=== PATIENT | female | born 1980 | race Caucasian/White ===

== ENCOUNTER 2019-01-30 20:42 | Emergency (ER) | payer SELFPAY ==
[~2019-01-30] VITALS: Ht 162.6 cm; Wt 77.1 kg
--- NOTE | 2019-01-30 20:44 | PHYS DOC ---
Past History Past Medical History: Sciatica Adult General Chief Complaint Chief Complaint: ".. I go bad back pain... it running down my Lt. leg....".."I did fall going down some stairs the other day...and I lift pt.s all day... 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 She has had previous episodes of back pain and sciatica. Patient did fall on stairs approximately 2 weeks ago which she suspects exacerbated her back pain. No history of travel. No history of specific ill contacts. No history immunosuppression. No history of cancer. No history of fever or chills. No history of IV drug use. Pain runs into left hip and radiates down behind left le g. She has associated numbness along the sciatic distribution. Review of Systems Review of Systems Constitutional: Denies fever or chills [] Eyes: Denies change in visual acuity, redness, or eye pain [] HENT: Denies nasal congestion or sore throat [] Respiratory: Denies cough or shortness of breath [] Cardiovascular: No additional information not addressed in [employer] [] GI: Denies abdominal pain, nausea, vomiting, bloody stools or diarrhea [] : Denies dysuria or hematuria [] Musculoskeletal: Complaints of exacerbation of left leg sciatica back pain. Integument: Denies rash or skin lesions [] Neurologic: Denies headache, focal weakness or sensory changes [] Endocrine: Denies polyuria or polydipsia [] All other systems were reviewed and found to be within normal limits, except as documented in this note. Family History Family History Noncontributory Current Medications Current Medications See nursing for home meds Allergies Allergies Allergic to Dilantin Physical Exam Physical Exam Constitutional: Moderate acute distress, non-toxic appearance. [] HENT: Normocephalic, atraumatic, bilateral external ears normal, oropharynx moist, no oral exudates, nose normal. [] Eyes: PERRLA, EOMI, conjunctiva normal, no discharge. [] Neck: Normal range of motion, no tenderness, supple, no stridor. [] Cardiovascular:Heart rate regular rhythm, no murmur [] Lungs & Thorax: Bilateral breath sounds equal apexes scattered wheezes on auscultation [] Abdomen: Bowel sounds normal, soft, no tenderness, no masses, no pulsatile masses. [] Skin: Warm, dry, no erythema, no rash. [] Back: Left lumbar sacral and sciatic route tenderness, no CVA tenderness. [] Extremities: Left sciatic tenderness, no cyanosis, no clubbing, ROM intact, no edema. Straight leg lift exacerbates her left leg sciatica. No cording appreciated Neurologic: Alert and oriented X 3, normal motor function, normal sensory function, no focal deficits noted. [] Psychologic: Affect anxious, judgement normal, mood normal. [] EKG EKG [] Radiology/Procedures Radiology/Procedures [] IMAGING REPORT Signed PATIENT: URBAN VARGAS ACCOUNT: [id number] : 1980 LOCATION: ER AGE: 38 SEX: F EXAM STATUS: REG ER ORD. PHYSICIAN: TENZIN EPPERSON MD REASON: Fall down stairs, left side lower back pain radiating to leg PROCEDURE: CT LUMBAR SPINE WO CONTRAST CT LUMBAR SPINE WO CONTRAST History: Fall downstairs. Left sided lower back pain radiating to leg. Technique: Noncontrast CT was performed of the lumbar spine. Multiplanar reconstructions were performed. Exposure: One or more of the following individualized dose reduction techniques were utilized for this examination: 1. Automated exposure control 2. Adjustment of the mA and/or kV according to patient size 3. Use of iterative reconstruction technique. Comparison: None Findings: Normal vertebral body height and alignment. No fracture. T12-L1: No canal or neuroforaminal narrowing. L1-L2: No canal or neuroforaminal narrowing. L2-L3: No canal or neuroforaminal narrowing. L3-L4: Minimal posterior disc bulge. No canal or neuroforaminal narrowing. L4-L5: Minimal posterior disc bulge. No canal or neuroforaminal narrowing. Mild facet arthropathy. L5-S1: Minimal posterior disc bulge. No canal or neuroforaminal narrowing. Mild facet arthropathy. Impression: 1. Mild multilevel lumbar spondylosis. No significant canal or neuroforaminal narrowing. Electronically signed by: Julius Bautista DO (01/30/2019 9:37 PM) [facility] DICTATED AND SIGNED BY: JULIUS BAUTISTA DO DATE: 01/30/192136 CC: TENZIN EPPERSON MD; LEDA PEREIRA ~ Course & Med Decision Making Course & Med Decision Making Pertinent Labs and Imaging studies reviewed. (See chart for details) Patient use ice packs as needed. Patient take Tylenol and ibuprofen for HEENT. For marked discomfort may take Vicoprofen up 4 times a day. Patient take Flexeril 10 mg 3 times a day for muscle spasms. Patient follow-up primary care. Patient return if any concerns. Encouraged to stop smoking. Impression: 1. Sciatica 2. Multilevel DJD 3. Tobacco Use [] Dragon Disclaimer Dragon Disclaimer This electronic medical record was generated, in whole or in part, using a voice recognition dictation system. Departure Departure: Disposition: 01 HOME/RESIDENCE PRIOR TO ADM Condition: STABLE Referrals: LEDA PEREIRA (PCP) Scripts Hydrocodone/Ibuprofen (HYDROCODONE-IBUPROFEN 7.5-200 ) 1 Each Tablet 1 TAB PO PRN Q6HRS PRN for PAIN, #30 TAB 0 Refills Prov: TENZIN EPPERSON MD 01/30/19 Cyclobenzaprine Hcl (CYCLOBENZAPRINE HCL) 10 Mg Tablet 10 MG PO TID PRN PRN for MUSCLE SPASMS, #30 TAB Prov: TENZIN EPPERSON MD 01/30/19 Dragon Disclaimer This chart was dictated in whole or in part using Voice Recognition software in a busy, high-work load, and often noisy Emergency Department environment. It may contain unintended and wholly unrecognized errors or omissions. TENZIN EPPERSON MD Jan 30, 2019 20:44
--- NOTE | 2019-01-30 21:40 | RAD ---
CT LUMBAR SPINE WO CONTRAST History: Fall downstairs. Left sided lower back pain radiating to leg. Technique: Noncontrast CT was performed of the lumbar spine. Multiplanar reconstructions were performed. Exposure: One or more of the following individualized dose reduction techniques were utilized for this examination: 1. Automated exposure control 2. Adjustment of the mA and/or kV according to patient size 3. Use of iterative reconstruction technique. Comparison: None Findings: Normal vertebral body height and alignment. No fracture. T12-L1: No canal or neuroforaminal narrowing. L1-L2: No canal or neuroforaminal narrowing. L2-L3: No canal or neuroforaminal narrowing. L3-L4: Minimal posterior disc bulge. No canal or neuroforaminal narrowing. L4-L5: Minimal posterior disc bulge. No canal or neuroforaminal narrowing. Mild facet arthropathy. L5-S1: Minimal posterior disc bulge. No canal or neuroforaminal narrowing. Mild facet arthropathy. Impression: 1. Mild multilevel lumbar spondylosis. No significant canal or neuroforaminal narrowing. Electronically signed by: Julius Bautista DO (01/30/2019 9:37 PM) [facility]
[2019-01-30] MEDS ORDERED: CYCL-331 PO (22:50)
[2019-01-30] MEDS ORDERED: HYDR-1179 PO (22:50)
[2019-01-30 22:51] LABS: AMPHETAMINE/METHAMPHETAMINE NEG (NEG); BARBITURATES NEG (NEG); BENZODIAZEPINES NEG (NEG); CANNABINOIDS POS (NEG); COCAINE NEG (NEG); METHADONE NEG (NEG); OPIATES POS (NEG); PHENCYCLIDINE NEG (NEG)
[2019-01-30] MEDS ORDERED: ORPHENADRINE CITRATE 60 MG/2 ML VIAL. IM ONE (23:00)
[2019-01-30] MEDS ORDERED: MORPHINE SULFATE 10 MG/ML SYRINGE. SQ ONE (23:00)
[2019-01-30] MEDS ORDERED: KETOROLAC 60 MG/2 ML VIAL. IM ONE (23:00)
[2019-01-30] MEDS ORDERED: methylPREDNISolone ACETATE 40 MG/ML VIAL. IM ONE (23:00)
[2019-01-30 23:04] LABS: BILIRUBIN,URINE NEG (NEG); CLARITY,URINE CLOUDY; COLOR,URINE YELLOW; GLUCOSE,URINE NEG (NEG); NITRITE,URINE NEG (NEG); UROBILINOGEN,URINE 0.2 mg/dL (0.2 mg/dL)
[2019-01-30 23:05] LABS: BACTERIA,URINE FEW /HPF (0-FEW); SQUAMOUS EPITHELIAL CELL,UR MOD /LPF
[2019-01-30 23:18] VITALS: BP 115/72
== END 2019-01-30 23:25 | disposition home or self-care (01) ==
LOC: ER 20:42
DX: M54.42 Lumbago with sciatica, left side (principal); M15.8 Other polyosteoarthritis; M47.896 Other spondylosis, lumbar region; Z72.0 Tobacco use
CPT/HCPCS: 36415; 72131; 80307; 81001; 81025; 96372; 99285; J1030; J1885; J2270; J2360

== ENCOUNTER 2019-07-28 20:00 | Emergency (ER) | payer SELFPAY ==
[~2019-07-28] VITALS: Ht 162.6 cm; Wt 70.3 kg
[~2019-07-28 20:00] MED LIST: CYCL-331 PO; HYDR-1179 PO
--- NOTE | 2019-07-28 20:21 | RAD ---
Exam: CT head INDICATION: Stroke TECHNIQUE: Sequential axial images through the head were obtained without the administration of IV contrast. Comparisons: None FINDINGS: No focal parenchymal lesion or hemorrhage is identified. There is no midline shift or sulcal effacement. No acute vascular territory infarction is identified. Shipley-white distinction is preserved. The ventricular system is within normal limits without compression hydrocephalus. The basal cisterns are well maintained. The visualized portions of the paranasal sinuses and mastoid air cells are well-pneumatized. No acute fractures. IMPRESSION: No acute intracranial abnormality. Exposure: One or more of the following in the visualized dose reduction techniques were utilized for this examination: 1. Automated exposure control 2. Adjustment of the MA and/or KV according to patient size Use of iterative of reconstructive technique FOR INTERNAL CODING PURPOSES Critical result: Findings discussed with ROB PRASAD at 07/28/2019 8:16 PM. RESULT CODE: (C) Electronically signed by: Bonifacio Linda MD (07/28/2019 8:18 PM) [id number]
[2019-07-28] MEDS ORDERED: IV NORMAL SALINE 1,000ML 1,000 ML IV ONE (20:30)
[2019-07-28 20:39] LABS: BASO # 0.1 x10^3/uL (0.0-0.2); BASO % 1 % (0-3); EOS % 0 % (0-3); LYMPH # 2.9 x10^3/uL (1.0-4.8); LYMPH % 32 % (24-48); MEAN CORPUSCULAR HEMOGLOBIN 30 pg (25-35); MEAN CORPUSCULAR HGB CONC 34 g/dL (31-37); MEAN CORPUSCULAR VOLUME 89 fL (79-100); MONO # 0.6 x10^3/uL (0.0-1.1); MONO % 7 % (0-9); NEUT # 5.4 x10^3uL (1.8-7.7); NEUT % 60 % (31-73); PLATELET COUNT 323 x10^3/uL (140-400); RED CELL DISTRIBUTION WIDTH 13.2 % (11.5-14.5); WHITE BLOOD COUNT 9.1 x10^3/uL (4.0-11.0)
[2019-07-28 20:46] LABS: CALCIUM 9.7 mg/dL (8.5-10.1); CREATININE 1.1 mg/dL (0.6-1.0); GFR 55.6; POTASSIUM 3.3 mmol/L (3.5-5.1)
[2019-07-28 20:52] LABS: ALBUMIN 4.1 g/dL (3.4-5.0); ALBUMIN/GLOBULIN RATIO 1.1 (1.0-1.7); TOTAL BILIRUBIN 0.3 mg/dL (0.2-1.0); TOTAL PROTEIN 7.9 g/dL (6.4-8.2)
[2019-07-28] MEDS ORDERED: IOHEXOL 350 MG/ML 100 ML VIAL. IV ONE (21:15)
[2019-07-28] MEDS ORDERED: ONDANSETRON PF 4 MG/2 ML VIAL. IVP ONE (21:30)
[2019-07-28] MEDS ORDERED: MORPHINE SULFATE 4 MG/ML DISP.SYRIN. IV ONE (21:30)
--- NOTE | 2019-07-28 22:20 | RAD ---
CTA head and CTA neck with contrast History: TIA Technique: Axial helical images were obtained of the head and neck after the intravenous administration of 75 mL of Isovue-370 IV contrast. Multiplanar reconstruction was performed on an independent work station including MIP imaging and 3D angiographic imaging. Comparison: none CTA head with and without contrast. Findings: Brain: The peña and white matter appears symmetrical. There is no mass effect, extra-axial fluid collections or hydrocephalus. There is no gross bleed. Distal carotid arteries: normal caliber Vertebral basilar system normal Major cerebral arteries: normal Impression: no acute findings end impression CTA neck with contrast: Findings: Aortic arch and origin of great vessels: normal Common carotid arteries: Right: normal Left: normal Internal carotid arteries: Right: normal Left: normal Vertebral basilar system normal Impression: No significant stenosis. PQRS Compliance Statement - Stenosis calculations for CT, MR and conventional angiography are based upon measurement of the distal ICA diameter in accordance with the NASCET methodology. Stenosis calculations for carotid ultrasound studies are derived from validated velocity criteria which are known to correlate with the NASCET methodology. PQRS Compliance Statement: One or more of the following individualized dose reduction techniques were utilized for this examination: 1. Automated exposure control 2. Adjustment of the mA and/or kV according to patient size 3. Use of iterative reconstruction technique Electronically signed by: Itz Gotti III, MD (07/28/2019 10:17 PM) [id number]
--- NOTE | 2019-07-28 22:22 | RAD ---
Exam: Right shoulder 3 views. Right hip with pelvis. Right femur INDICATION: Fall with right hip and pelvic pain TECHNIQUE: Frontal view of the right shoulder with internal and external rotation and transscapular Y view. Frontal and frog-leg lateral views of the right hip with frontal view of the pelvis. Frontal and lateral views of the right femur. Comparisons: None FINDINGS: Shoulder: Bone mineralization is normal. No acute or healed fractures. Soft tissues are unremarkable. Joint spaces are well-maintained. Pelvis: Bone mineralization is normal. No acute or healed fractures. Soft tissues are unremarkable. Joint spaces are well-maintained. Femur: Bone mineralization is normal. No acute or healed fractures. Soft tissues are unremarkable. Joint spaces are well-maintained. IMPRESSION: 1. No acute osseous abnormality of the right shoulder. 2. No acute osseous abnormality of the right femur. 3. No acute osseous abnormality of the right hip. Electronically signed by: Bonifacio Linda MD (07/28/2019 10:19 PM) [id number]
--- NOTE | 2019-07-28 22:38 | EKG ---
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
--- NOTE | 2019-07-28 22:48 | PHYS DOC ---
Past History Past Medical History: Anxiety, Bipolar, Depression, Seizure, Sciatica Additional Past Medical Histor: psoriasis,chronic back pain, cervical cancer,grand mal Past Surgical History: Tonsillectomy, Other Additional Past Surgical Histo: laser to cervix to remove cancer cells-1997 Alcohol Use: None Drug Use: None General Adult EDM: Chief Complaint: ALTERED MENTAL STATUS HPI: HPI: Patient is a 39-year-old female brought by EMS with a chief complaint of slurred speech and falling. EMS state that the patient's last known well was 99 hours. They state that patient was out with her neighbors and family when she suddenly had an episode of slurred speech and stumbling around. EMS denies that patient used alcohol or any drugs. When presenting to the ED patient complains of pain to her right upper and lower extremity and states that she cannot move it due to pain. Patient also complains of chest pain that is been present for more than 1 week. Patient is speaking without any difficulty on presentation to the ER. EMS also state that patient has tested positive for COVID more than 1 week ago. Patient does admit to being an active smoker. Patient denies fever, chills, nausea or vomiting. Patient does complain of pain to her right shoulder and right hip and right thigh. Patient states that this is where she fell because she was not able to walk properly. Review of Systems: Review of Systems: Constitutional: Denies fever or chills Eyes: Denies change in visual acuity HENT: Denies nasal congestion or sore throat Respiratory: Denies cough or shortness of breath Cardiovascular: Denies chest pain or edema GI: Denies abdominal pain, nausea, vomiting, bloody stools or diarrhea : Denies dysuria Musculoskeletal: Complains of pain to the right shoulder, right hip and right thigh Integument: Denies rash Neurologic: Complains of pain and decreased movement to the right upper and lower extremities. Heart Score: Risk Factors: Risk Factors: DM, Current or recent (<one month) smoker, HTN, HLP, family history of CAD, obesity. Risk Scores: Score 0 - 3: 2.5% MACE over next 6 weeks - Discharge Home Score 4 - 6: 20.3% MACE over next 6 weeks - Admit for Clinical Observation Score 7 - 10: 72.7% MACE over next 6 weeks - Early Invasive Strategies Current Medications: Current Meds: Current Medications Medications (Trade) Dose Ordered Sig/Romel Start Time Stop Time Status Last Admin Dose Admin Iohexol (Omnipaque 350 Mg/ml) 100 ml 1X ONCE 07/28/19 21:15 07/28/19 21:16 DC 07/28/19 22:21 100 ML Morphine Sulfate (Morphine 4mg Syringe) 4 mg 1X ONCE 07/28/19 21:30 07/28/19 21:31 DC 07/28/19 21:28 4 MG Ondansetron HCl (Zofran) 4 mg 1X ONCE 07/28/19 21:30 07/28/19 21:31 DC 07/28/19 21:27 4 MG Sodium Chloride 1,000 ml @ 1,000 mls/hr 1X ONCE 07/28/19 20:30 07/28/19 21:29 DC 07/28/19 20:36 1,000 MLS/HR Allergies: Allergies: Allergies Coded Allergies Type Severity Reaction Last Updated Verified phenytoin Allergy Intermediate 01/30/19 Yes Physical Exam: PE: Constitutional: Well developed, well nourished, no acute distress, non-toxic appearance. [] HENT: Normocephalic, atraumatic Eyes: EOMI Neck: Normal range of motion, Supple Cardiovascular:Heart rate regular rhythm Lungs & Thorax: Bilateral breath sounds clear to auscultation [] Abdomen: Bowel sounds normal, soft, no tenderness Extremities: Tenderness to the right shoulder, right hip, right thigh Neurologic: Alert and oriented X 3. Patient complains of decreased movement to the right upper and right lower extremities and states that this is due to pain. Current Patient Data: Labs: Laboratory Tests Test 07/28/19 20:19 White Blood Count 9.1 x10^3/uL (4.0-11.0) Red Blood Count 4.60 x10^6/uL (3.50-5.40) Hemoglobin 14.0 g/dL (12.0-15.5) Hematocrit 41.0 % (36.0-47.0) Mean Corpuscular Volume 89 fL (79-100) Mean Corpuscular Hemoglobin 30 pg (25-35) Mean Corpuscular Hemoglobin Concent 34 g/dL (31-37) Red Cell Distribution Width 13.2 % (11.5-14.5) Platelet Count 323 x10^3/uL (140-400) Neutrophils (%) (Auto) 60 % (31-73) Lymphocytes (%) (Auto) 32 % (24-48) Monocytes (%) (Auto) 7 % (0-9) Eosinophils (%) (Auto) 0 % (0-3) Basophils (%) (Auto) 1 % (0-3) Neutrophils # (Auto) 5.4 x10^3uL (1.8-7.7) Lymphocytes # (Auto) 2.9 x10^3/uL (1.0-4.8) Monocytes # (Auto) 0.6 x10^3/uL (0.0-1.1) Eosinophils # (Auto) 0.0 x10^3/uL (0.0-0.7) Basophils # (Auto) 0.1 x10^3/uL (0.0-0.2) Prothrombin Time 10.4 SEC (9.4-11.4) Prothrombin Time INR 1.0 (0.9-1.1) Sodium Level 142 mmol/L (136-145) Potassium Level 3.3 mmol/L (3.5-5.1) L Chloride Level 104 mmol/L (98-107) Carbon Dioxide Level 24 mmol/L (21-32) Anion Gap 14 (6-14) Blood Urea Nitrogen 16 mg/dL (7-20) Creatinine 1.1 mg/dL (0.6-1.0) H Estimated GFR (Cockcroft-Gault) 55.6 BUN/Creatinine Ratio 15 (6-20) Glucose Level 124 mg/dL (70-99) H Calcium Level 9.7 mg/dL (8.5-10.1) Total Bilirubin 0.3 mg/dL (0.2-1.0) Aspartate Amino Transferase (AST) 17 U/L (15-37) Alanine Aminotransferase (ALT) 23 U/L (14-59) Alkaline Phosphatase 72 U/L (46-116) Troponin I Quantitative < 0.017 ng/mL (0-0.055) Total Protein 7.9 g/dL (6.4-8.2) Albumin 4.1 g/dL (3.4-5.0) Albumin/Globulin Ratio 1.1 (1.0-1.7) Vital Signs: Vital Signs Date Time Temp Pulse Resp B/P (MAP) Pulse Ox O2 Delivery O2 Flow Rate FiO2 07/28/19 22:15 102 20 111/78 (89) 100 Room Air 07/28/19 20:16 98.7 EKG: EKG: EKG interpretation: 20: 29 on 07/28/2019 HR: 105 Sinus tachycardia Regular intervals Normal axis Non specific ST changes Radiology/Procedures: Radiology/Procedures: [] Impressions: CT head shows no acute disease. CT of the head and neck shows no acute stenosis. X-ray of the right shoulder shows no acute fractures X-ray of the right hip shows no acute fractures X-ray of the pelvis shows no acute fractures X-ray of the right femur shows no acute fractures Course & Med Decision Making: Course & Med Decision Making Pertinent Labs and Imaging studies reviewed. (See chart for details) Ordered labs, CT of the head, IV, UA, EKG, troponin CT head does not show any acute disease. Initially patient was not able to move right upper extremity right lower extremity. Patient then gave more of a history that she fell and that is the pain caused on her right hip and right shoulder. Once the right hip was supported patient was able to flex and extend her right knee. She was also able to flex and extend her right elbow. Patient has no slurred speech while in the ER. EKG does not show any acute changes. Labs are within normal limits. Troponin is negative. I discussed case with Dr. Sanchez from neurology who recommends that if patient still has acute deficits that patient can be given TPA. On reexamination of the patient, patient currently has no acute focal neurologic deficits. TPA is not given to the patient. CTA of the head and neck shows no acute stenosis. Due to patient's initial presenting symptoms, I will transfer patient to [facility] for further evaluation and treatment. I discussed results and plan of care with patient. I discussed case with Dr. Carvajal who is the hospitalist on-call who accepts transfer. Surya Disclaimer: Surya Disclaimer: This electronic medical record was generated, in whole or in part, using a voice recognition dictation system. Departure Departure: Impression: Primary Impression: TIA (transient ischemic attack) Disposition: 05 TRANSFER OTHER Condition: IMPROVED Referrals: LEDA PEREIRA (PCP) ROB PRASAD DO Jul 28, 2019 22:48
[2019-07-28 23:57] LABS: BACTERIA,URINE FEW /HPF (0-FEW); BILIRUBIN,URINE NEG (NEG); CLARITY,URINE CLEAR; COLOR,URINE YELLOW; GLUCOSE,URINE NEG (NEG); NITRITE,URINE NEG (NEG); RBC,URINE 0 /HPF (0-2); SQUAMOUS EPITHELIAL CELL,UR FEW /LPF; UROBILINOGEN,URINE 0.2 mg/dL (0.2 mg/dL); WBC,URINE OCC /HPF (0-4)
[2019-07-29 00:35] VITALS: BP 108/70
== END 2019-07-29 01:23 | disposition short-term general hospital (02) ==
LOC: ER 20:00
DX: G45.9 Transient cerebral ischemic attack, unspecified (principal); M25.511 Pain in right shoulder; M25.551 Pain in right hip; M79.651 Pain in right thigh; G89.29 Other chronic pain; F17.200 Nicotine dependence, unspecified, uncomplicated; W18.39XA Other fall on same level, initial encounter; Y93.89 Activity, other specified; Y92.89 Other specified places as the place of occurrence of the external cause; Y99.8 Other external cause status
CPT/HCPCS: 36415; 70450; 70496; 70498; 73030; 73502; 73552; 80053; 81001; 84484; 85025; 85610; 93005; 96374; 96375; 99285; J2270; J2405; Q9967; J7030

== ENCOUNTER 2019-12-21 00:04 | Emergency (ER) | payer SELFPAY ==
[~2019-12-21] VITALS: Ht 315 cm; Wt 67.0 kg
[2019-12-21] MEDS ORDERED: IV NORMAL SALINE 1,000ML 1,000 ML IV ONE (00:30)
--- NOTE | 2019-12-21 00:39 | PHYS DOC ---
Past History Past Medical History: Anxiety, Bipolar, Depression, Seizure, Sciatica Additional Past Medical Histor: psoriasis,chronic back pain, cervical cancer,grand mal Past Surgical History: Tonsillectomy, Other Additional Past Surgical Histo: laser to cervix to remove cancer cells-1997 Alcohol Use: None Drug Use: None General Adult EDM: Chief Complaint: Vaginal bleeding HPI: HPI: 39-year-old female presents with vaginal bleeding and concern for . Her last menstrual cycle was November 28 and . Today she started having vaginal bleeding and some cramping. She was concerned about this so she took a test. It was positive. She has had work-related. Continued bleeding so she decided to come in for evaluation. The pain is not severe, more of a mild to moderate cramping that is annoying. She denies fever or chills. She denies dysuria or increased urinary frequency. She has not attempting to get . The patient's menstrual cycles are not always consistent. Sometimes she just bleeds for couple days and sometimes at 7. Her cycle is generally 4 weeks but not always. She has no other complaints at this time. Review of Systems: Review of Systems: Constitutional: Denies fever or chills Eyes: Denies change in visual acuity HENT: Denies nasal congestion or sore throat Respiratory: Denies cough or shortness of breath Cardiovascular: Denies chest pain or edema GI: Denies abdominal pain, nausea, vomiting, bloody stools or diarrhea : Vaginal bleeding Musculoskeletal: Denies back pain or joint pain Integument: Denies rash Neurologic: Denies headache, focal weakness or sensory changes Endocrine: Denies polyuria or polydipsia Lymphatic: Denies swollen glands Psychiatric: Denies depression or anxiety Current Medications: Current Meds: Current Medications Medications (Trade) Dose Ordered Sig/Romel Start Time Stop Time Status Last Admin Dose Admin Sodium Chloride 1,000 ml @ 1,000 mls/hr 1X ONCE 12/21/19 00:30 12/21/19 01:29 Allergies: Allergies: Allergies Coded Allergies Type Severity Reaction Last Updated Verified phenytoin Allergy Intermediate 01/30/19 Yes Physical Exam: PE: Constitutional: Well developed, well nourished, no acute distress, non-toxic appearance. [] HENT: Normocephalic, atraumatic, bilateral external ears normal, oropharynx moist, no oral exudates, nose normal. [] Eyes: PERRLA, EOMI, conjunctiva normal, no discharge. [] Neck: Normal range of motion, no tenderness, supple, no stridor. [] Cardiovascular: Heart rate regular rhythm, no murmur [] Lungs & Thorax: Bilateral breath sounds clear to auscultation [] Abdomen: Bowel sounds normal, soft, no tenderness, no masses, no pulsatile masses. [] Skin: Warm, dry, no erythema, no rash. [] Back: No tenderness, no CVA tenderness. [] Extremities: No tenderness, no cyanosis, no clubbing, ROM intact, no edema. [] Neurologic: Alert and oriented X 3, normal motor function, normal sensory function, no focal deficits noted. [] Psychologic: Affect normal, judgement normal, mood normal. [] EKG: EKG: [] Radiology/Procedures: Radiology/Procedures: [] Impressions: INDICATION: Reason: bleeding, +preg, rule out ectopic / Spl. Instructions: / History: COMPARISON: None. TECHNIQUE: Grayscale and color ultrasound images uterus and adnexa. Transabdominal and transvaginal images obtained. Transvaginal images were needed to better visualize structures that were limited on transabdominal imaging. FINDINGS: Uterus: 79 x 48 x 48 mm. No intrauterine gestational sac is identified. There is an ill-defined appearance of the myometrium and endometrium with echogenic coarsened appearance. Right Ovary: 29 x 19 x 17 mm. Left Ovary: 34 x 26 x 19 mm. Vascular flow identified to bilateral ovaries. At the left adnexa abutting or arising from the left ovary there is a masslike structure identified with a central cystic component. This structure measures up to about 2 cm in diameter with the central fluid component measuring approximately 8 mm. Small free fluid. IMPRESSION: * Within the left adnexa there is a cystic structure identified with a surrounding solid component. Given the patient's positive hCG one possible cause would include an ectopic but given that there is not a pole within this cystic structure alternative causes of adnexal mass remain within the differential as well. * No intrauterine gestational sac is identified. * Ill-defined appearance of the endometrial stripe with echogenic coarsened appearance of the adjacent myometrium. This is nonspecific in nature but causes such as adenomyosis not excluded. Electronically signed by: Fiona Patrick MD (12/21/2019 2:47 AM) [id number] DICTATED AND SIGNED BY: FIONA PATRICK MD DATE: 12/21/19 024 CC: JEREMY JOHNSON DO; PCP,NO ~ Heart Score: Risk Factors: Risk Factors: DM, Current or recent (<one month) smoker, HTN, HLP, family history of CAD, obesity. Risk Scores: Score 0 - 3: 2.5% MACE over next 6 weeks - Discharge Home Score 4 - 6: 20.3% MACE over next 6 weeks - Admit for Clinical Observation Score 7 - 10: 72.7% MACE over next 6 weeks - Early Invasive Strategies Course & Med Decision Making: Course & Med Decision Making Pertinent Labs and Imaging studies reviewed. (See chart for details) The patient's labs are unremarkable. Her urinalysis is positive for . Her quantitative hCG is 293. I have ordered an ultrasound to rule out ectopic . The patient's ultrasound suggest possible ectopic . It cannot rule that out. See official read for details. We have paged OB. I spoke with Dr. Segovia and he believes that the patient can follow-up outpatient to follow her hCGs. I have explained this to the patient. I have also told her that if her condition worsens in any way or for bleeding increases significantly that she should call OB and/or come back to the emergency room for further evaluation and management. She is stable for discharge at this time. [] Dragon Disclaimer: Dragon Disclaimer: This electronic medical record was generated, in whole or in part, using a voice recognition dictation system. Departure Departure: Impression: Primary Impression: Vaginal bleeding during Disposition: 01 DC HOME SELF CARE/HOMELESS Condition: STABLE Referrals: PCP,NO (PCP) Patient Instructions: Vaginal Bleeding During , First Trimester JEREMY JOHNSON DO Dec 21, 2019 00:39
[2019-12-21 00:51] LABS: BASO # 0.1 x10^3/uL (0.0-0.2); BASO % 1 % (0-3); EOS # 0.1 x10^3/uL (0.0-0.7); EOS % 2 % (0-3); HEMATOCRIT 37.6 % (36.0-47.0); HEMOGLOBIN 12.4 g/dL (12.0-15.5); LYMPH # 3.5 x10^3/uL (1.0-4.8); LYMPH % 43 % (24-48); MEAN CORPUSCULAR HEMOGLOBIN 30 pg (25-35); MEAN CORPUSCULAR HGB CONC 33 g/dL (31-37); MEAN CORPUSCULAR VOLUME 92 fL (79-100); MONO # 0.6 x10^3/uL (0.0-1.1); MONO % 7 % (0-9); NEUT # 3.9 x10^3uL (1.8-7.7); NEUT % 48 % (31-73); PLATELET COUNT 291 x10^3/uL (140-400); RED BLOOD COUNT 4.07 x10^6/uL (3.50-5.40); RED CELL DISTRIBUTION WIDTH 13.4 % (11.5-14.5); WHITE BLOOD COUNT 8.2 x10^3/uL (4.0-11.0)
[2019-12-21 00:57] LABS: ANION GAP 8 (6-14); BLOOD UREA NITROGEN 15 mg/dL (7-20); BUN/CREATININE RATIO 15 (6-20); CALCIUM 8.9 mg/dL (8.5-10.1); CARBON DIOXIDE 28 mmol/L (21-32); CHLORIDE 103 mmol/L (98-107); GFR 62.1; GLUCOSE 95 mg/dL (70-99); POTASSIUM 3.8 mmol/L (3.5-5.1); SODIUM 139 mmol/L (136-145)
[2019-12-21 01:00] LABS: BACTERIA,URINE FEW /HPF (0-FEW); BILIRUBIN,URINE NEG (NEG); CLARITY,URINE HAZY; COLOR,URINE YELLOW; GLUCOSE,URINE NEG (NEG); NITRITE,URINE NEG (NEG); RBC,URINE >40 /HPF (0-2); SQUAMOUS EPITHELIAL CELL,UR FEW /LPF; UROBILINOGEN,URINE 0.2 mg/dL (0.2 mg/dL)
[2019-12-21 01:03] LABS: ALBUMIN 3.7 g/dL (3.4-5.0); ALBUMIN/GLOBULIN RATIO 1.1 (1.0-1.7); ALK PHOS 61 U/L (46-116); ALT (SGPT) 18 U/L (14-59); AST (SGOT) 12 U/L (15-37)
[2019-12-21 01:09] LABS: TOTAL BILIRUBIN < 0.1 mg/dL (0.2-1.0)
--- NOTE | 2019-12-21 02:50 | RAD ---
INDICATION: Reason: bleeding, +preg, rule out ectopic / Spl. Instructions: / History: COMPARISON: None. TECHNIQUE: Grayscale and color ultrasound images uterus and adnexa. Transabdominal and transvaginal images obtained. Transvaginal images were needed to better visualize structures that were limited on transabdominal imaging. FINDINGS: Uterus: 79 x 48 x 48 mm. No intrauterine gestational sac is identified. There is an ill-defined appearance of the myometrium and endometrium with echogenic coarsened appearance. Right Ovary: 29 x 19 x 17 mm. Left Ovary: 34 x 26 x 19 mm. Vascular flow identified to bilateral ovaries. At the left adnexa abutting or arising from the left ovary there is a masslike structure identified with a central cystic component. This structure measures up to about 2 cm in diameter with the central fluid component measuring approximately 8 mm. Small free fluid. IMPRESSION: * Within the left adnexa there is a cystic structure identified with a surrounding solid component. Given the patient's positive hCG one possible cause would include an ectopic but given that there is not a pole within this cystic structure alternative causes of adnexal mass remain within the differential as well. * No intrauterine gestational sac is identified. * Ill-defined appearance of the endometrial stripe with echogenic coarsened appearance of the adjacent myometrium. This is nonspecific in nature but causes such as adenomyosis not excluded. Electronically signed by: Jared Patrick MD (12/21/2019 2:47 AM) [id number]
[2019-12-21 03:19] VITALS: BP 135/84
== END 2019-12-21 03:20 | disposition home or self-care (01) ==
LOC: ER 00:04
DX: O46.91 Antepartum hemorrhage, unspecified, first trimester (principal); G89.29 Other chronic pain; Z3A.01 Less than 8 weeks gestation of pregnancy; Z88.8 Allergy status to other drugs, medicaments and biological substances
CPT/HCPCS: 36415; 76801; 80053; 81001; 81025; 84702; 85025; 87086; 96360; 96361; 99284; J7030

== ENCOUNTER 2020-06-10 01:05 | Emergency (ER) | payer OTHER ==
[~2020-06-10] VITALS: Ht 152.4 cm; Wt 77.3 kg
--- NOTE | 2020-06-10 01:12 | PHYS DOC ---
Past History Past Medical History: Anxiety, Bipolar, Depression, Seizure, Sciatica Additional Past Medical Histor: psoriasis,chronic back pain, cervical cancer,grand mal Past Surgical History: Tonsillectomy, Other Additional Past Surgical Histo: laser to cervix to remove cancer cells-1997 Smoking: Quit Less Than 1 Year Alcohol Use: Sober Drug Use: None General Adult EDM: Chief Complaint: SEIZURE HPI: HPI: 40 year old female presents with report of witness seizure like activity just prior to arrival which lasted approximately 2 mins. Patient with history of seizures. Reports she is currently not on any seizure medications because she is 6 months . Denies pain at time time. Reports feels the baby move and denies any vaginal bleeding. Review of Systems: Review of Systems: Constitutional: Denies fever or chills Eyes: Denies redness or eye pain HENT: Denies nasal congestion or sore throat or tongue pain Respiratory: Denies cough or shortness of breath Cardiovascular: Denies chest pain or palpitations GI: Denies abdominal pain, nausea, or vomiting /[employer]: Denies dysuria or hematuria; reports 6 months Musculoskeletal: Denies back pain or joint pain Integument: Denies rash or skin lesions Neurologic: Denies headache, focal weakness or sensory changes; reports seizure like activity Complete systems were reviewed and found to be within normal limits, except as documented in this note. Allergies: Allergies: Allergies Coded Allergies Type Severity Reaction Last Updated Verified phenytoin Allergy Intermediate 06/10/20 Yes Physical Exam: PE: Constitutional: Well developed, well nourished, no acute distress, non-toxic appearance HENT: Normocephalic, atraumatic, tongue atraumatic Eyes: PERRL, EOMI, conjunctiva normal, no discharge, no nystagmus Neck: Normal range of motion, no tenderness, supple Lungs & Thorax: No respiratory distress, equal chest rise and fall Abdomen: Soft, no tenderness, gravid Skin: Warm, dry, no erythema, no rash Back: No tenderness, no CVA tenderness Extremities: No tenderness, ROM intact, no edema Neurologic: Alert and oriented X 3, normal motor function, normal sensory function, no focal deficits noted Psychologic: Affect normal, judgment normal EKG: EKG: [] Radiology/Procedures: Radiology/Procedures: [] Heart Score: C/O Chest Pain: N/A Course & Med Decision Making: Course & Med Decision Making Pertinent Lab studies reviewed. (See chart for details) Patient presents with witness seizure like activity. Hx of seizures. Complicated by for which patient currently not on any medications to prevent seizures. Blood pressure stable. No signs of eclampsia. Labs obtained and posted to chart. IVF hydration given. Patient neurologically intact. heart tones normal. Patient stable for discharge with outpatient follow-up with PCP/OB/Neurology. Discussed findings and plan with patient, who acknowledges understanding and agreement. Surya Disclaimer: Surya Disclaimer: This electronic medical record was generated, in whole or in part, using a voice recognition dictation system. Departure Departure: Impression: Primary Impression: Witnessed seizure-like activity Additional Impression: Qualified Codes: Z34.90 - Encounter for supervision of normal , unspecified, unspecified trimester Disposition: 01 HOME / SELF CARE / HOMELESS Condition: STABLE Referrals: PCP,RONN (PCP) JALEESA DE SANTIAGO MD Patient Instructions: ABCs of , Seizure, Adult, Ehpu-so-Hepa CRIS FARLEY DO Jun 10, 2020 01:12
[2020-06-10] MEDS ORDERED: IV NORMAL SALINE 1,000ML 1,000 ML IV ONE (01:15)
[2020-06-10 01:35] LABS: BASO # 0.1 x10^3/uL (0.0-0.2); BASO % 0 % (0-3); EOS # 0.2 x10^3/uL (0.0-0.7); EOS % 1 % (0-3); HEMOGLOBIN 10.5 g/dL (12.0-15.5); LYMPH # 2.8 x10^3/uL (1.0-4.8); LYMPH % 20 % (24-48); MEAN CORPUSCULAR HEMOGLOBIN 30 pg (25-35); MEAN CORPUSCULAR HGB CONC 34 g/dL (31-37); MEAN CORPUSCULAR VOLUME 90 fL (79-100); MONO # 0.8 x10^3/uL (0.0-1.1); MONO % 6 % (0-9); NEUT # 9.9 x10^3uL (1.8-7.7); NEUT % 72 % (31-73); PLATELET COUNT 294 x10^3/uL (140-400); RED BLOOD COUNT 3.46 x10^6/uL (3.50-5.40); WHITE BLOOD COUNT 13.7 x10^3/uL (4.0-11.0)
[2020-06-10 01:43] LABS: CALCIUM 8.4 mg/dL (8.5-10.1); CREATININE 0.6 mg/dL (0.6-1.0); GFR 111.3; POTASSIUM 3.6 mmol/L (3.5-5.1)
[2020-06-10 01:49] LABS: ALBUMIN 2.7 g/dL (3.4-5.0); ALBUMIN/GLOBULIN RATIO 0.7 (1.0-1.7); MAGNESIUM 1.7 mg/dL (1.8-2.4); TOTAL BILIRUBIN 0.2 mg/dL (0.2-1.0); TOTAL PROTEIN 6.6 g/dL (6.4-8.2)
[2020-06-10 02:53] LABS: BACTERIA,URINE 0 /HPF (0-FEW); BILIRUBIN,URINE NEG (NEG); CLARITY,URINE CLEAR; COLOR,URINE YELLOW; GLUCOSE,URINE NEG (NEG); NITRITE,URINE NEG (NEG); RBC,URINE 0 /HPF (0-2); SQUAMOUS EPITHELIAL CELL,UR MOD /LPF; UROBILINOGEN,URINE 0.2 mg/dL (0.2 mg/dL); WBC,URINE OCC /HPF (0-4)
[2020-06-10 03:07] VITALS: BP 95/58
== END 2020-06-10 03:27 | disposition home or self-care (01) ==
LOC: ER 01:05
DX: O26.892 Other specified pregnancy related conditions, second trimester (principal); R56.9 Unspecified convulsions; O99.342 Other mental disorders complicating pregnancy, second trimester; F31.9 Bipolar disorder, unspecified; G89.29 Other chronic pain; Z87.891 Personal history of nicotine dependence; Z88.8 Allergy status to other drugs, medicaments and biological substances; Z3A.24 24 weeks gestation of pregnancy
CPT/HCPCS: 36415; 80053; 81001; 82550; 83605; 83735; 84702; 85025; 96360; 99284; J7030